=== PATIENT | male | born 1940 | race Caucasian/White ===

== ENCOUNTER 2024-07-29 19:28 | Emergency (ER) | payer MEDICARE, MEDICAID ==
[~2024-07-29] VITALS: Ht 165.1 cm; Wt 60.0 kg
[2024-07-29 19:35] VITALS: O2SAT 98
[2024-07-29] MEDS: TETANUS, DIPHTHERIA, PERTUSSIS VAC/PF 0.5ML (>10YR OLD) IM ONE (21:00)
[2024-07-29] MEDS ORDERED: NAPR-1486 MT (21:10)
[2024-07-29 22:42] VITALS: BP 126/64; PULSE 86; RESP 16; TEMP 36.4; O2SAT 98
== END 2024-07-29 22:42 | disposition home or self-care (01) ==
LOC: ER 19:28
DX: S52.692A Other fracture of lower end of left ulna, initial encounter for closed fracture (principal); S09.8XXA Other specified injuries of head, initial encounter; M18.12 Unilateral primary osteoarthritis of first carpometacarpal joint, left hand; Z79.1 Long term (current) use of non-steroidal anti-inflammatories (NSAID); I67.82 Cerebral ischemia; W19.XXXA Unspecified fall, initial encounter; Y93.89 Activity, other specified; Y92.89 Other specified places as the place of occurrence of the external cause; Y99.8 Other external cause status
CPT/HCPCS: 29125; 73110; 90471; 90715; 99285